=== PATIENT | female | born 1985 | race Caucasian/White ===

== ENCOUNTER 2021-05-09 10:14 | Emergency (ER) | payer MEDICARE ==
[~2021-05-09] VITALS: Ht 165.1 cm; Wt 69.9 kg
[2021-05-09] MEDS ORDERED: METHOCARBAMOL 750 MG TABLET PO ONE (11:30)
[2021-05-09] MEDS ORDERED: KETOROLAC TROMETHAMINE 60 MG/2 ML VIAL IM ONE (11:30)
[2021-05-09 14:00] VITALS: BP 114/87
== END 2021-05-09 14:02 | disposition home or self-care (01) ==
LOC: EMS 10:19
DX: S16.1XXA Strain of muscle, fascia and tendon at neck level, initial encounter (principal); S80.02XA Contusion of left knee, initial encounter; S40.012A Contusion of left shoulder, initial encounter; S20.212A Contusion of left front wall of thorax, initial encounter; X58.XXXA Exposure to other specified factors, initial encounter; Y93.89 Activity, other specified; Y92.89 Other specified places as the place of occurrence of the external cause; Y99.8 Other external cause status
CPT/HCPCS: 71101; 72040; 72070; 72100; 73030; 73562; 81025; 96372; 99284; J1885